=== PATIENT | male | born 1970 | race Hispanic/Latino ===

== ENCOUNTER 2016-08-04 22:57 | Emergency (ER) | payer OTHER ==
[~2016-08-04] VITALS: Ht 172.7 cm; Wt 83.3 kg
[2016-08-05] MEDS ORDERED: PERCOCET 5/31 TABLET PO (01:23)
[2016-08-05] MEDS ORDERED: PREDNISONE20 MG PO (01:23)
[2016-08-05] MEDS ORDERED: FLEXERIL5 MG PO (01:25)
[2016-08-05 02:20] VITALS: BP 142/106
== END 2016-08-05 02:21 | disposition home or self-care (01) ==
LOC: EME 22:57
DX: S13.4XXA Sprain of ligaments of cervical spine, initial encounter (principal); X58.XXXA Exposure to other specified factors, initial encounter; M54.12 Radiculopathy, cervical region
CPT/HCPCS: 72050; 99281; 99284; J1100

== ENCOUNTER 2016-08-31 13:47 | Emergency (ER) | payer OTHER ==
[~2016-08-31] VITALS: Ht 172.7 cm; Wt 81.2 kg
[~2016-08-31 13:47] MED LIST: FLEXERIL5 MG PO; PERCOCET 5/31 TABLET PO; PREDNISONE20 MG PO
[2016-08-31 21:21] VITALS: BP 148/94
== END 2016-08-31 21:24 | disposition home or self-care (01) ==
LOC: EME → EDBD 13:47 → EME 21:24
DX: F33.1 Major depressive disorder, recurrent, moderate (principal); F10.10 Alcohol abuse, uncomplicated; Z04.6 Encounter for general psychiatric examination, requested by authority
CPT/HCPCS: 90837; 93005; 99281; 99285; G0480

== ENCOUNTER 2016-09-25 13:40 | Emergency (ER) | payer OTHER ==
[~2016-09-25] VITALS: Ht 172.7 cm; Wt 80.5 kg
[2016-09-25 14:12] LABS: HEMATOCRIT 41.7 % (38.0-50.0); MCH 32.3 PG (29.0-34.0); MCHC 35.5 G/DL (30.0-36.0); MEAN PLAT.VOLUME 9.8 uM^3 (9.0-12.4); PLATELET COUNT 282 K/uL (156-360); RBC DIS.WIDTH-CV 12.2 % (11.8-14.6); RBC DIS.WIDTH-SD 40.5 % (39-53); RED BLOOD COUNT 4.58 M/uL (4.00-5.50); WHITE BLOOD COUNT 7.1 K/uL (4.1-10.2)
[2016-09-25 14:20] LABS: CHLORIDE 107 mEq/L (99-109); POTASSIUM 3.4 mEq/L (3.7-5.4); SODIUM 140 mEq/L (136-147)
[2016-09-25 14:22] LABS: GLUCOSE 96 mg/dL (70-99)
[2016-09-25 14:23] LABS: ANION GAP 13 MEQ/L (2-14)
[2016-09-25 14:26] LABS: GFR ESTIMATE (CALCULATED) > 59 mL/min/
[2016-09-25 14:27] LABS: UREA NITROGEN (BUN) 11 mg/dL (9-23)
[2016-09-25 14:32] LABS: TROP-I INTERPRETATION NEGATIVE; TROPONIN-I < 0.01 ng/mL (0.0-0.30)
[2016-09-25] MEDS ORDERED: PRINIVIL10 MG PO (15:52)
[2016-09-25 17:43] LABS: AMPHETAMINE NEGATIVE (500 ng/mL); COCAINE NEGATIVE (150 ng/mL); METHAMPHETAMINE NEGATIVE (500 ng/mL); OPIATES (MORPHINE) PRESUMPTIVE POSITIVE (100 ng/mL); PHENCYCLIDINE NEGATIVE (25 ng/mL); THC CANNABINOIDS NEGATIVE (50 ng/mL)
[2016-09-25 17:44] LABS: ADD MEDTOX COMMENT Y; BARBITURATES NEGATIVE (200 ng/mL); BENZODIAZEPINES PRESUMPTIVE POSITIVE (150 ng/mL); INTERNAL CONTROLS VALID? YES; METHADONE NEGATIVE (200 ng/mL); OXYCODONE NEGATIVE (100 ng/mL); PROPOXYPHENE NEGATIVE (300 ng/mL); TRICYCLIC ANTIDEPRESSANTS NEGATIVE (300 ng/mL)
[2016-09-25 18:15] LABS: BENZODIAZEPINES QUANT VALUE 0 NG/ML
[2016-09-25 18:18] LABS: BENZODIAZEPINES, URINE SCREEN Negative (200 ng/mL)
[2016-09-25] MEDS ORDERED: ZOFRAN ODT4 MG PO (19:22)
[2016-09-25 19:42] VITALS: BP 126/92
== END 2016-09-25 20:03 | disposition home or self-care (01) ==
LOC: EME 13:40
PROVIDERS: Emergency Medicine
DX: F11.23 Opioid dependence with withdrawal (principal); R11.2 Nausea with vomiting, unspecified; R63.4 Abnormal weight loss; M79.1 Myalgia; R00.0 Tachycardia, unspecified; I10 Essential (primary) hypertension; Z68.26 Body mass index [BMI] 26.0-26.9, adult
CPT/HCPCS: 71010; 71275; 80048; 84443; 84484; 84999; 85027; 93005; 99281; 99285; J2270; J2405; J7030

== ENCOUNTER 2017-04-03 20:11 | Emergency (ER) | payer OTHER ==
[~2017-04-03] VITALS: Ht 172.7 cm; Wt 79.5 kg
[~2017-04-03 20:11] MED LIST changes: +PRINIVIL10 MG PO; +ZOFRAN ODT4 MG PO
[2017-04-03 21:02] LABS: HEMATOCRIT 43.9 % (38.0-50.0); MCH 33.5 PG (29.0-34.0); MCHC 35.8 G/DL (30.0-36.0); MCV 93.6 FL (86-99); MEAN PLAT.VOLUME 10.2 uM^3 (9.0-12.4); PLATELET COUNT 245 K/uL (156-360); RBC DIS.WIDTH-CV 11.4 % (11.8-14.6); RBC DIS.WIDTH-SD 39.3 % (39-53); RED BLOOD COUNT 4.69 M/uL (4.00-5.50)
[2017-04-03 21:08] LABS: CARBON DIOXIDE (BICARBONATE) 26.1 MEQ/L (20-31)
[2017-04-03 21:11] LABS: CHLORIDE 103 mEq/L (99-109); POTASSIUM 4.1 mEq/L (3.7-5.4); SODIUM 143 mEq/L (136-147)
[2017-04-03 21:12] LABS: GLUCOSE 99 mg/dL (70-99)
[2017-04-03 21:13] LABS: ADD MIUA? YES; BILIRUBIN NEGATIVE; BLOOD MODERATE; COLOR STRAW ((YELLOW)); GLUCOSE (STRIP) NEGATIVE; KETONES 5; LEUKOCYTES NEGATIVE; NITRITE NEGATIVE; PROTEIN (STRIP) 30; SPECIFIC GRAVITY 1.005 (1.000-1.030); UROBILINOGEN 0.2 MG/DL (0.2-1.0)
[2017-04-03 21:14] LABS: ANION GAP 20 MEQ/L (2-14)
[2017-04-03 21:16] LABS: GFR ESTIMATE (CALCULATED) > 59 mL/min/
[2017-04-03 21:17] LABS: UREA NITROGEN (BUN) 7 mg/dL (9-23)
[2017-04-03 21:23] LABS: TROP-I INTERPRETATION NEGATIVE; TROPONIN-I < 0.01 ng/mL (0.0-0.30)
[2017-04-03 21:51] LABS: BACTERIA NONE SEEN /HPF; EPITHELIAL CELLS NONE SEEN /HPF; MUCUS NONE SEEN /LPF; RED BLOOD CELLS 0-5 /HPF (0-5); UCUL ADDED? NO; WHITE BLOOD CELLS 0-5 /HPF (0-5)
[2017-04-03 22:11] LABS: SERUM ETHYL ALCOHOL 324 mg/dL
[2017-04-03] MEDS ORDERED: TYLENOL EXTRA500 MG PO (23:10)
[2017-04-03] MEDS ORDERED: SUBOXONE 8 MG-1 EAC2 SL (23:10)
[2017-04-04] VITALS: BP 117/92
== END 2017-04-04 02:43 | disposition left against medical advice (07) ==
LOC: EME → EDBD 20:11 → EME 04-04 02:43
PROVIDERS: Emergency Medicine
DX: E87.2 Acidosis (principal); F10.239 Alcohol dependence with withdrawal, unspecified; F10.229 Alcohol dependence with intoxication, unspecified; Y90.8 Blood alcohol level of 240 mg/100 ml or more; E86.0 Dehydration; R11.10 Vomiting, unspecified; I10 Essential (primary) hypertension; E78.5 Hyperlipidemia, unspecified; K76.0 Fatty (change of) liver, not elsewhere classified; F41.9 Anxiety disorder, unspecified; F32.9 Major depressive disorder, single episode, unspecified; F17.210 Nicotine dependence, cigarettes, uncomplicated
CPT/HCPCS: 71010; 74176; 80048; 81003; 82803; 83605; 83880; 84484; 85027; 87040; 87086; 93005; 99281; 99285; G0480; J1885; J2060; J2405; J2543

== ENCOUNTER 2017-04-11 16:06 | Emergency (ER) | payer OTHER ==
[~2017-04-11] VITALS: Ht 172.7 cm; Wt 72.8 kg
[~2017-04-11 16:06] MED LIST changes: +SUBOXONE 8 MG-1 EAC2 SL; +TYLENOL EXTRA500 MG PO
[2017-04-11 17:08] LABS: BASOPHIL COUNT 0.1 K/uL (0-0.1); EOSINOPHIL (%) 2.3 % (0-5); EOSINOPHIL COUNT 0.2 K/uL (0-0.3); HEMATOCRIT 44.7 % (38.0-50.0); IMMATURE GRANULOCYTE (%) 0.3 % (0.0-0.7); INSTRUMENT ABS NEUTROPHIL CT 2.3 K/uL; LYMPHOCYTE COUNT 3.3 K/uL (1.0-2.8); MCH 32.9 PG (29.0-34.0); MCHC 35.1 G/DL (30.0-36.0); MCV 93.7 FL (86-99); MEAN PLAT.VOLUME 10.8 uM^3 (9.0-12.4); MONOCYTE (%) 10.5 % (3-12); MONOCYTE COUNT 0.7 K/uL (0-0.8); NEUTROPHIL COUNT 2.3 K/uL (1.8-6.4); PLATELET COUNT 267 K/uL (156-360); RBC DIS.WIDTH-CV 11.4 % (11.8-14.6); RBC DIS.WIDTH-SD 39.7 % (39-53); RED BLOOD COUNT 4.77 M/uL (4.00-5.50); WHITE BLOOD COUNT 6.6 K/uL (4.1-10.2)
[2017-04-11 17:19] LABS: CHLORIDE 109 mEq/L (99-109); POTASSIUM 3.3 mEq/L (3.7-5.4); SODIUM 147 mEq/L (136-147)
[2017-04-11 17:21] LABS: GLUCOSE 114 mg/dL (70-99)
[2017-04-11 17:22] LABS: ANION GAP 16 MEQ/L (2-14)
[2017-04-11 17:23] LABS: TOTAL BILIRUBIN 0.4 mg/dL (0.0-1.0)
[2017-04-11 17:24] LABS: SERUM ETHYL ALCOHOL 339 mg/dL
[2017-04-11 17:25] LABS: ALKALINE PHOSPHATASE 84 IU/L (3-129); GFR ESTIMATE (CALCULATED) > 59 mL/min/
[2017-04-11 17:26] LABS: UREA NITROGEN (BUN) 8 mg/dL (9-23)
[2017-04-11 17:28] LABS: TROP-I INTERPRETATION NEGATIVE; TROPONIN-I < 0.01 ng/mL (0.0-0.30)
[2017-04-11 17:47] VITALS: BP 134/82
== END 2017-04-11 17:07 | disposition left against medical advice (07) ==
LOC: EME 16:06
PROVIDERS: Emergency Medicine
DX: F10.239 Alcohol dependence with withdrawal, unspecified (principal); Y90.8 Blood alcohol level of 240 mg/100 ml or more; R00.0 Tachycardia, unspecified; E87.6 Hypokalemia; R11.2 Nausea with vomiting, unspecified; R19.7 Diarrhea, unspecified; Z91.81 History of falling; I10 Essential (primary) hypertension; Z53.29 Procedure and treatment not carried out because of patient's decision for other reasons
CPT/HCPCS: 80053; 81003; 83735; 84484; 85025; 99281; 99283; G0480